=== PATIENT | female | born 1955 | race African-American/Black ===

== ENCOUNTER 2019-10-09 05:08 | Day surgery (SDC) | payer BC, OTHER ==
[2019-10-02 16:46] VITALS: BMI 29.1
== END 2019-10-09 10:15 | disposition home or self-care (01) ==
LOC: JASU-SURG 05:08
PROVIDERS: ATTEND Obstetrics & Gynecology
DX: Z53.8 Procedure and treatment not carried out for other reasons (principal)
CPT/HCPCS: 86850; 86900; 86901

== ENCOUNTER 2020-01-13 04:52 | Day surgery (SDC) | payer BC, OTHER ==
[2020-01-06 16:16] VITALS: BMI 30.9
[2020-01-13] MEDS ORDERED: PROPOFOL 20 ML ONE ×2 (10:52→11:05)
[2020-01-13] MEDS ORDERED: MIDAZOLAM HCL 2 MG/2 ML SINGLE DOSE VIAL ONE (10:52)
[2020-01-13] MEDS ORDERED: ceFAZolin SODIUM 1 GM VIAL IVPB ONE (11:05)
[2020-01-13] MEDS ORDERED: ACETAMINOPHEN 325 MG TABLET (FP) PO PRN (11:43)
[2020-01-13] MEDS ORDERED: IBUPROFEN 400 MG TABLET (FP) PO PRN (11:43)
--- NOTE | 2020-01-13 12:05 | OP ---
DATE OF OPERATION: 01/13/2020 PREOPERATIVE DIAGNOSIS: Postmenopausal bleeding. POSTOPERATIVE DIAGNOSIS: Postmenopausal bleeding. SURGEON: Dylan Montoya MD ANESTHESIA: General. OPERATION: Hysteroscopy and dilation and curettage. DESCRIPTION OF PROCEDURE: While patient was prepped and draped under general anesthesia, examination revealed that patient had a small uterus, cervix was closed, vagina clean, adnexa negative. During the procedure dilatation of the cervix was done up to [address]. The uterine cavity was 8 cm. Immediate hysteroscopy was done with the help of saline media, and entire endocervix and endometrium were evaluated. There was some atrophic endometrium. After hysteroscopy done immediately and the cervical curetting was done, a small amount of tissue was removed. Then endometrial curetting was done, and moderate amount of tissue was removed. Estimated blood loss was 5 mL. Patient tolerated the procedure, was sent to recovery room in good condition. Stephon [id number]
[2020-01-13] MEDS ORDERED: oxyCODONE HCL 5 MG TABLET PO PRN (13:20)
[2020-01-13] MEDS ORDERED: ONDANSETRON 4 MG/2 ML VIAL IVPUSH PRN (13:20)
[2020-01-13] MEDS ORDERED: LACTATED RINGERS SOLUTION 1,000 ML IV SCH (13:30)
[2020-01-13 17:13] VITALS: BP 126/72; PULSE 63; TEMP 98.7
--- NOTE | 2020-01-14 13:26 | PATH ---
Surgical Pathology Report Patient Name: CINTHYA MARQUEZ [facility]. Rec. #: [id number] /Age/Gender: 1955 (Age: 64) / F Account: [id number] Location: [facility] SURGICAL Taken: 01/13/2020 Received: 01/13/2020 Reported: 01/14/2020 Physicians: Dylan Montoya M.D. Specimen(s) Received A: ENDOCERVICAL CURETTINGS B: ENDOMETRIAL CURETTINGS Clinical History Postmenopausal bleeding Final Diagnosis A. ENDOCERVICAL CURETTINGS, DILATION AND CURETTAGE: FRAGMENTS OF SCANT INACTIVE ENDOMETRIUM, STROMA, AND SCANT BENIGN CERVICAL TISSUE ADMIXED WITH BLOOD. B. ENDOMETRIAL CURETTINGS, DILATION AND CURETTAGE: FRAGMENTA OF ENDOMETRIAL POLYP, INACTIVE ENDOMETRIUM, AND BENIGN CERVICAL TISSUE. Electronically Signed Yary Aguilar M.D. Gross Description A. Received in formalin labeled "endocervical curettings," is a 0.5 x 0.3 x 0.1 cm aggregate of kan-brown soft tissue fragments. The formalin is filtered and the specimen is entirely submitted in one cassette. B. Received in formalin labeled "endometrial curettings," is a 1.0 x 0.8 x 0.2 cm aggregate of kan-red soft tissue fragments. The formalin is filtered and the specimen is entirely submitted in one cassette. /01/13/2020 [facility]01/13/2020
== END 2020-01-13 14:30 | disposition home or self-care (01) ==
LOC: JASU-SURG 04:52
PROVIDERS: ATTEND Obstetrics & Gynecology
PROC: 0UDB7ZX Extraction of Endometrium, Via Natural or Artificial Opening, Diagnostic (ICD-10-PCS; principal; 2020-01-13 10:30)
DX: N95.0 Postmenopausal bleeding (principal)
CPT/HCPCS: 94760